=== PATIENT | male | born 1965 | race Caucasian/White ===

== ENCOUNTER → 2020-04-22 08:12 | Outpatient (CLI) | payer BC, SELFPAY ==
--- NOTE | ~2020-04-22 | MR_ITS ---
EXAMINATION: MR cervical spine wo con EXAM DATE: 04/22/2020 08:54 INDICATION: Neck pain, bilateral arm pain. TECHNIQUE: Multi-sequential, multiplanar MR images of the cervical spine were obtained without contra st. Axial T2, axial T2 MERGE sequence. Sagittal T1, T2, T2 fat saturation images also obtained. Th ere is no prior study for comparison. FINDINGS: There is 2 mm anterolisthesis C2 on C3. There is mild to moderate reversal of normal cervi liat lordosis. There is moderate disc disease from C4-7. The spinal cord signal intensity and intrinsi c morphology is normal. Cervicomedullary junction is normal in appearance. There are no suspicious ma rrow signal abnormalities. Paraspinal soft tissue is unremarkable. Level by level evaluation: C2-C3: Disc does not extend beyond the endplate margin. Uncovertebral joint arthropathy: None. Facet joint arthropathy: Moderate left, mild right. Neural foraminal stenosis: No stenosis. Central canal stenosis: No stenosis. C3-C4: Small central protrusion. Uncovertebral joint arthropathy: Mild right. Facet joint arthropathy: Moderate left, mild right. Neural foraminal stenosis: No stenosis. Central canal stenosis: No stenosis. C4-C5: There is a mild diffuse disc bulge. Uncovertebral joint arthropathy: Mild to moderate bilateral. Facet joint arthropathy: Mild to moderate bilateral. Neural foraminal stenosis: Mild to moderate right, mild left. Central canal stenosis: Mild. C5-C6: There is a mild diffuse disc bulge. Uncovertebral joint arthropathy: Moderate right, mild to moderate left. Facet joint arthropathy: Mild bilateral. Neural foraminal stenosis: Moderate right, mild left. Central canal stenosis: Mild. C6-C7: There is a mild diffuse disc bulge. Uncovertebral joint arthropathy: Moderate right, mild to moderate left. Facet joint arthropathy: Mild bilateral. Neural foraminal stenosis: Mild to moderate right, mild left. Central canal stenosis: Mild. C7-T1: Disc does not extend beyond the endplate margin. Uncovertebral joint arthropathy: Mild bilateral. Facet joint arthropathy: Mild bilateral. Neural foraminal stenosis: No stenosis. Central canal stenosis: No stenosis. IMPRESSION: 1. Overall moderate midcervical spondylosis with right mid cervical neural foramen most narrowed. Reviewed, dictated and finalized at location B. IMPRESSION: 1. Overall moderate midcervical spondylosis with right mid cervical neural for amen most narrowed.
== END ==
PROVIDERS: PCP Internal Medicine; Visit Provider Physician Assistant Medical
DX: R20.2 Paresthesia of skin (principal); M47.892 Other spondylosis, cervical region
CPT/HCPCS: 72141

== ENCOUNTER → 2022-11-09 08:02 | Outpatient (CLI) | payer OTHER, SELFPAY ==
--- NOTE | ~2022-11-09 | MR_ITS ---
MRI of the brain Clinical History: Visual disturbances Technique: Axial and sagittal T1-weighted images were acquired. These were followed by axial T2-weigh [place], diffusion weighted, gradient, and FLAIR images.. Following intravenous administration of 15 cc M ultiHance gadolinium, T1-weighted fat-sat imaging was performed in the axial and coronal planes. Findings: No abnormal signal seen in the brain parenchyma. No acute infarct, intracranial hemorrhage, or mass lesion. Ventricles and subarachnoid spaces are unremarkable. Orbits are unremarkable. Paranasal sinuses and m astoid air cells are clear. Major intracranial flow voids appear intact. Sagittal midline structures are intact. No abnormal postcontrast enhancement identified. IMPRESSION: Unremarkable exam. Reviewed, dictated and finalized at location M. IMPRESSION: Unremarkable exam.
== END ==
DX: H53.9 Unspecified visual disturbance (principal); R29.90 Unspecified symptoms and signs involving the nervous system; R29.91 Unspecified symptoms and signs involving the musculoskeletal system
CPT/HCPCS: 70553; A9577